=== PATIENT | female | born 2000 | race African-American/Black ===

== ENCOUNTER 2023-09-07 14:49 | Outpatient (CLI) | payer MEDICAID, SELFPAY ==
--- NOTE | 2023-09-24 09:15 | ONC.NURNOTE ---
Received referral from Zelda Griffin PA-C for hematology consult for low von Willebrand factor in setting of dysmenorrhea, menorrhagia. Reviewed coagulation lab work and clinical information with [place] [employer]. Appropriate for pt to be seen in the next month or so with [facility] prior to visit. I have left message for Ms. Owens to schedule appointment.
== END 2023-09-07 14:50 | disposition home or self-care (01) ==
PROVIDERS: PCP Family Medicine; Visit Provider Physician Assistant
DX: N92.0 Excessive and frequent menstruation with regular cycle (principal)
CPT/HCPCS: 84443; 85240; 85245; 85246; 85384; 85610; 85730

== ENCOUNTER 2023-10-05 17:57 | Outpatient (CLI) | payer MEDICAID, SELFPAY ==
--- NOTE | 2023-10-05 18:00 | CRLHL7_ITS ---
For Patients: As a result of the Century Cures Act, medical imaging exams and procedure reports are released immediately into your electronic medical record. You may view this report before your referring provider. If you have questions, please contact your health care provider. INDICATION: Irregular menses. On Depo-Provera. TECHNIQUE: Transabdominal pelvic ultrasound. Patient was unable to tolerate transvaginal exam. Grayscale and color Doppler images obtained. FINDINGS: Uterus is anteverted and measures 5.7 x 2.7 x 3.8 cm. Normal endometrial stripe thickness of 4 mm. The right ovary was not visualized. Left ovary is normal. No adnexal mass or free fluid. IMPRESSION: 1. Right ovary was not visible. 2. Otherwise normal transabdominal pelvic ultrasound. Dictated by Dion Villeda MD @ 10/06/2023 1:50:47 PM (Electronically Signed)
== END 2023-10-05 17:58 | disposition home or self-care (01) ==
LOC: US 17:57
PROVIDERS: PCP Family Medicine; Visit Provider Physician Assistant
DX: N92.0 Excessive and frequent menstruation with regular cycle (principal); N94.6 Dysmenorrhea, unspecified
CPT/HCPCS: 76830; 76856

== ENCOUNTER 2023-11-10 13:17 | Outpatient (RCR) | payer MEDICAID, SELFPAY ==
[2023-11-10 14:33] LABS: Basophils Absolute Auto 0.02 K/uL (0.00-0.30); Basophils Percent Auto 0.4 % (0.0-3.0); Eosinophils Absolute Auto 0.25 K/uL (0.00-0.50); Eosinophils Percent Auto 5.5 % (0.0-7.0); Hematocrit 37.2 % (33.0-51.0); Hemoglobin* 12.4 gm/dL (12.0-16.0); Immature Granulocytes Abs Auto 0.04 K/uL (0.00-0.30); Immature Granulocytes Pct Auto 0.9 %; Lymphocytes Absolute Auto 1.72 K/uL (0.90-2.90); Lymphocytes Percent Auto 37.6 % (20-44); Mean Corpuscular HGB Conc 33 gm/dL (32-36); Mean Corpuscular Hemoglobin 30 pg (26-34); Mean Corpuscular Volume 89 fL (80-100); Monocytes Percent Auto 6.3 % (0.0-11.0); Neutrophils Absolute Auto 2.26 K/uL (1.7-7.0); Neutrophils Percent Auto 49.3 % (42.0-72.0); Platelet Count* 366 K/uL (140-440); Red Blood Count 4.19 m/uL (4.00-5.20); White Blood Count* 4.58 K/uL (4.50-11.00)
[2023-11-10 14:44] LABS: Slide Review Reflex No
[2023-11-10 14:51] LABS: INR 1.04 (0.91-1.10); Prothrombin Time 14.3 Seconds
[2023-11-10 14:52] LABS: Partial Thromboplastin Time* 32 Seconds (23-33)
[2023-11-10 15:11] LABS: Iron* 83 ug/dL (37-170)
[2023-11-10 15:21] LABS: Percent Iron Saturation 28 % (20-50); Total Iron Binding Capacity 295 ug/dL (265-497)
[2023-11-10 15:25] LABS: Ferritin* 75.8 ng/mL (6.24-137.0)
[2023-11-13 22:35] LABS: von WillebrandFactorAntigen 110 % (52-214); vonWillebrandFactorActivityRCF 78 % (51-215)
== END 2024-05-08 23:59 | disposition home or self-care (01) ==
LOC: CCIC 13:17
PROVIDERS: PCP Family Medicine; Visit Provider Internal Medicine Hematology & Oncology
DX: R79.1 Abnormal coagulation profile (principal); N92.0 Excessive and frequent menstruation with regular cycle
CPT/HCPCS: 36415; 82728; 83540; 83550; 85025; 85240; 85245; 85246; 85610; 85730; 99202; 99204